=== PATIENT | male | born 1970 | race Caucasian/White ===

== ENCOUNTER 2017-02-01 23:33 | Emergency (ER) | payer SELFPAY ==
[2017-02-02] MEDS ORDERED: ZOFRAN IV ONE (00:11)
[2017-02-02] MEDS ORDERED: DILAUDID IV ONE (00:11)
[2017-02-02] MEDS ORDERED: NACL 0.9% 1000 ML 1,000 ML IV ONE (00:11)
[2017-02-02 00:17] LABS: Hematocrit 43.7 % (35.5-45.6); Hemoglobin 15.2 gm/dl (11.8-15.2); Mean Corpuscular HGB Conc 35 % (32-34); Mean Corpuscular Hemoglobin 32 pg (28-32); Mean Corpuscular Volume 92 fl (84-94); Platelet Count 268 K/mm3 (140-440); Red Blood Count 4.76 M/mm3 (3.65-5.03); Red Cell Distribution Width 14.6 % (13.2-15.2); White Blood Count 9.1 K/mm3 (4.5-11.0)
[2017-02-02 00:36] LABS: Alanine Aminotransferase 30 units/L (7-56); Albumin 4.2 g/dL (3.9-5); Albumin/Globulin Ratio 1.1 %; Alkaline Phosphatase 97 units/L (35-129); Anion Gap 26 mmol/L; BUN/Creatinine Ratio 16.25; Blood Urea Nitrogen 13 mg/dL (9-20); Calcium 8.9 mg/dL (8.4-10.2); Carbon Dioxide 16 mmol/L (22-30); Chloride 97.6 mmol/L (98-107); Glucose 94 mg/dL (75-100); Lipase 40 units/L (13-60); Potassium 3.8 mmol/L (3.6-5.0); Sodium 136 mmol/L (137-145); Total Protein 7.9 g/dL (6.3-8.2)
--- NOTE | 2017-02-02 01:07 | Emergency Department Report ---
ED General Adult HPI - General Chief complaint: Abdominal Pain Stated complaint: ABD PAIN Time Seen by Provider: 02/02/17 00:05 Source: patient Mode of arrival: Wheelchair Limitations: No Limitations - History of Present Illness Initial comments: This is a 46-year-old male. He is previously unknown to me. The patient has a past medical history of alcohol abuse, pancreatitis. The patient presents to the ER with diffuse upper abdominal pain. It is sharp. It increases with palpation. It decreases with rest. It also decreases with hydromorphone. No irritative or obstructive urinary symptoms. No testicular pain. Patient is in a moderate amount of distress. -: Gradual Location: abdomen Severity scale (0 -10): 10 Consistency: constant Improves with: medication, rest Worsens with: movement Associated Symptoms: nausea/vomiting, weakness. denies: chest pain - Related Data Previous Rx's Medication Instructions Recorded Last Taken Type Pantoprazole [Protonix TAB] 40 mg PO QDAY #14 tablet 05/25/16 Unknown Rx Dicyclomine [Bentyl] 10 mg PO QID PRN #20 capsule 02/02/17 Unknown Rx Ondansetron [Zofran Odt] 4 mg PO QID PRN #20 tab.rapdis 02/02/17 Unknown Rx Promethazine [Phenergan SUPPOS] 50 mg [place] Q6H PRN #20 supp.rect 02/02/17 Unknown Rx Sucralfate [Carafate] 1 gm PO Q6HR #120 tablet 02/02/17 Unknown Rx Allergies Allergy/AdvReac Type Severity Reaction Status Date / Time No Known Allergies Allergy Verified 07/18/15 12:53 ED Review of Systems ROS: Stated complaint: ABD PAIN Other details as noted in HPI Constitutional: malaise. denies: fever Eyes: denies: eye discharge Respiratory: denies: cough Gastrointestinal: abdominal pain, nausea Genitourinary: as per HPI Musculoskeletal: as per HPI Skin: as per HPI Neurological: weakness Psychiatric: anxiety. denies: suicidal thoughts ED Past Medical Hx - Past Medical History Hx Hypertension: Yes Hx Heart Attack/AMI: No Hx Congestive Heart Failure: No Hx Diabetes: No Hx Deep Vein Thrombosis: No Hx Pulmonary Embolism: No Hx GERD: Yes Hx Liver Disease: No Hx Renal Disease: No Hx Sickle Cell Disease: No Hx Arthritis: No Hx Headaches / Migraines: Yes Hx Seizures: No Hx Kidney Stones: No Hx Asthma: No Hx COPD: No Hx Tuberculosis: No Hx Dementia: No Hx HIV: No Additional medical history: Pancreatitis. ALCOHOL ABUSE. STOMACH ULCER - Surgical History Hx Coronary Stent: No Hx Pacemaker: No Hx Internal Defibrillator: No Additional Surgical History: colon surgery - Social History Smoking Status: Never Smoker Substance Use Type: None - Medications Home Medications: Home Medications Medication Instructions Recorded Confirmed Last Taken Type Pantoprazole [Protonix TAB] 40 mg PO QDAY #14 tablet 05/25/16 02/01/17 Unknown Rx Dicyclomine [Bentyl] 10 mg PO QID PRN #20 capsule 02/02/17 Unknown Rx Ondansetron [Zofran Odt] 4 mg PO QID PRN #20 tab.rapdis 02/02/17 Unknown Rx Promethazine [Phenergan SUPPOS] 50 mg [place] Q6H PRN #20 supp.rect 02/02/17 Unknown Rx Sucralfate [Carafate] 1 gm PO Q6HR #120 tablet 02/02/17 Unknown Rx ED Physical Exam - General Limitations: No Limitations General appearance: alert, in distress - Head Head exam: Present: atraumatic, normocephalic - Eye Eye exam: Present: normal appearance - ENT ENT exam: Present: normal exam, normal orophraynx, mucous membranes moist, normal external ear exam - Neck Neck exam: Present: normal inspection, full ROM. Absent: tenderness, meningismus - Respiratory Respiratory exam: Present: normal lung sounds bilaterally. Absent: respiratory distress, wheezes, rales, rhonchi, stridor, chest wall tenderness, accessory muscle use, decreased breath sounds, prolonged expiratory - Cardiovascular Cardiovascular Exam: Present: normal rhythm, tachycardia, normal heart sounds. Absent: systolic murmur, diastolic murmur, rubs, gallop - GI/Abdominal GI/Abdominal exam: Present: soft, tenderness, normal bowel sounds. Absent: distended, guarding, rebound, rigid, pulsatile mass - Rectal Rectal exam: Present: deferred - Extremities Exam Extremities exam: Present: normal inspection, full ROM, normal capillary refill. Absent: tenderness, pedal edema, joint swelling, calf tenderness - Back Exam Back exam: Present: normal inspection, full ROM. Absent: tenderness, CVA tenderness (R), CVA tenderness (L), muscle spasm, paraspinal tenderness, vertebral tenderness - Neurological Exam Neurological exam: Present: alert, other (Extraocular movements intact. Tongue midline. No facial droop. Facial sensation intact to light touch in the V1, V2 , V3 distribution bilaterally. 5 and 5 strength in 4 extremities.. Sensation is intact to light touch in 4 extremities.). Absent: motor sensory deficit - Psychiatric Psychiatric exam: Present: normal affect, normal mood, anxious - Skin Skin exam: Present: warm, dry, intact, normal color. Absent: rash ED Course Vital Signs 02/01/17 02/01/17 02/02/17 23:38 23:56 00:00 Temperature 98 F Pulse Rate 110 H 93 H 92 H Respiratory 16 22 23 Rate Blood Pressure 135/99 134/101 O2 Sat by Pulse 97 96 Oximetry 02/02/17 02/02/17 02/02/17 00:30 01:00 02:02 Temperature Pulse Rate 86 77 92 H Respiratory 16 13 18 Rate Blood Pressure 135/83 125/87 125/87 O2 Sat by Pulse 92 98 97 Oximetry 02/02/17 02/02/17 02/02/17 02:30 03:00 03:30 Temperature Pulse Rate 83 78 Respiratory 13 12 14 Rate Blood Pressure 125/87 125/87 126/90 O2 Sat by Pulse 95 96 Oximetry 02/02/17 02/02/17 02/02/17 04:00 04:30 05:00 Temperature Pulse Rate Respiratory 12 9 L 12 Rate Blood Pressure 120/80 126/90 122/82 O2 Sat by Pulse 95 99 97 Oximetry - Reevaluation(s) Reevaluation #1: 02/02/17 01:27 Differential diagnosis: GERD, gastritis, pancreatitis, biliary colic Assessment and plan: 46-year-old male with diffuse abdominal tenderness, most likely recurrent pancreatitis. He is afebrile with slight tachycardia. He will be treated with fluids, pain medication, nausea medication, CT scan is pending. Reevaluation #2: 02/02/17 05:44 CT scan of the abdomen and pelvis negative for acute surgical disease. There is a suggestion of urinary obstruction. The patient refused a Hayes catheter, and then was promptly able to urinate 2 L without difficulty. Right upper quadrant ultrasound did not demonstrate any evidence of cholecystitis. In fact, no cholelithiasis is noted. Lactic acid most likely secondary to underlying alcohol consumption, poor hepatic clearance, and dehydration. A repeat laboratory studies demonstrated slightly decreased lactic acid, and improvement in anion gap. The patient's abdomen is improved on repeat examination. He is able to tolerate liquid feeds. He is still clinically intoxicated, but he is accompanied by a girlfriend who feels comfortable to take him home. The patient and accompanying [employer] are encouraged to discontinue alcohol consumption. The patient will be discharged with pain medication, nausea medication, instructions to follow up with outpatient gastroenterology. ED Medical Decision Making - Lab Data Result diagrams: 02/02/17 00:00 02/02/17 02:40 Vital Signs 02/01/17 23:38 Temperature 98 F Pulse Rate 110 H Respiratory 16 Rate Blood Pressure 135/99 O2 Sat by Pulse 97 Oximetry Lab Results 02/02/17 02/02/17 Range/Units 00:00 00:00 WBC 9.1 (4.5-11.0) K/mm3 RBC 4.76 (3.65-5.03) M/mm3 Hgb 15.2 (11.8-15.2) gm/dl Hct 43.7 (35.5-45.6) % MCV 92 (84-94) fl MCH 32 (28-32) pg MCHC 35 H (32-34) % RDW 14.6 (13.2-15.2) % Plt Count 268 (140-440) K/mm3 Lymph % (Auto) 38.1 H (13.4-35.0) % Ramsey % (Auto) 9.9 H (0.0-7.3) % Eos % (Auto) 2.0 (0.0-4.3) % Baso % (Auto) 1.0 (0.0-1.8) % Lymph # 3.5 (1.2-5.4) K/mm3 Ramsey # 0.9 H (0.0-0.8) K/mm3 Eos # 0.2 (0.0-0.4) K/mm3 Baso # 0.1 (0.0-0.1) K/mm3 Seg Neutrophils % 49.0 (40.0-70.0) % Seg Neutrophils # 4.5 (1.8-7.7) K/mm3 Sodium 136 L (137-145) mmol/L Potassium 3.8 (3.6-5.0) mmol/L Chloride 97.6 L (98-107) mmol/L Carbon Dioxide 16 L (22-30) mmol/L Anion Gap 26 mmol/L BUN 13 (9-20) mg/dL Creatinine 0.8 (0.8-1.5) mg/dL Estimated GFR > 60 ml/min BUN/Creatinine Ratio 16.25 % Glucose 94 (75-100) mg/dL Calcium 8.9 (8.4-10.2) mg/dL Total Bilirubin 0.80 (0.1-1.2) mg/dL AST 47 H (5-40) units/L ALT 30 (7-56) units/L Alkaline Phosphatase 97 (35-129) units/L Total Protein 7.9 (6.3-8.2) g/dL Albumin 4.2 (3.9-5) g/dL Albumin/Globulin Ratio 1.1 % Lipase 40 (13-60) units/L - EKG Data -: EKG Interpreted by Ma EKG shows normal: sinus rhythm Rate: tachycardia - EKG Data 02/02/17 01:28 Normal sinus, 89 bpm, normal axis, normal intervals, not morphologically consistent with STEMI, when compared to old EKG, septal infarct appears to be here. - Radiology Data Radiology results: pending, report reviewed, image reviewed Right upper quadrant ultrasound is negative for cholecystitis. CT scan of the abdomen and pelvis suggests a gallstone in the neck of the gallbladder. There is distention of the urinary bladder. No pericholecystic inflammatory changes were noted. Critical care attestation.: If time is entered above; I have spent that time in minutes in the direct care of this critically ill patient, excluding procedure time. ED Disposition Clinical Impression: Abdominal pain, Alcohol intoxication Disposition: DISCHARGED TO HOME OR SELFCARE Is pt being admited?: No Does the pt Need Aspirin: No Condition: Stable Instructions: Pancreatitis (ED) Additional Instructions: Moderate or discontinue consumption of alcohol. This is the most likely cause of your pain. Take the medications as directed and needed. Follow up with a primary care doctor or bar manager within the next 7-10 days. Avoid consumption of NSAIDs, including Aleve, ibuprofen, Motrin, aspirin. Dr. Gutiérrez is a local bar manager. Return to the ER right away with you pain, worsened pain, migration of pain, fevers, chills, confusion, intractable nausea or vomiting, inability to tolerate liquid feeds. Referrals: PRIMARY CARE, [Primary Care Provider] - 3-5 Days URI GUTIÉRREZ MD [Staff Physician] - 3-5 Days
[2017-02-02] MEDS ORDERED: PEPCID IV ONE (01:26)
[2017-02-02] MEDS ORDERED: CARAFATE PO ONE (01:26)
--- NOTE | 2017-02-02 01:55 | Admit Criteria Form ---
Admission Criteria Documentation: ABDOMINAL PAIN Clinical Indications for Admission to Inpatient Care (Place 'X' for any and all applicable criteria): Admission is indicated for ANY ONE of the following(1)(2)(3)(4)(5): [X ]I. Inpatient admission required rather than observation care (Also use Abdominal Pain: Observation Care, as appropriate) because of ANY ONE of the following: [ ]a) Severe pain requiring acute inpatient management [X ]b) Identification of etiology/finding that requires inpatient care (eg, aortic dissection, free air) [ ]c) Absent bowel sounds with complete ileus(6) [ ]d) Suspected toxic megacolon [ ]e) Severe electrolyte abnormalities requiring inpatient care [ ]f) High fever or infection requiring inpatient admission as indicated by ANY ONE of following(7)(8): [ ] i) Appropriate outpatient or observational care antimicrobial treatment unavailable, not effective, or not feasible [ ] ii) Documented bacteremia [ ] iii) Temperature > 104.9 degrees F (oral) [ ] iv) T >103.1 F (oral) or < 96.8 F(rectal) that does not respond to all emergency treatment measures [ ]g) Signs of intestinal obstruction [B] [ ]h) Hemodynamic instability [ ]i) IV fluid to replace significant ongoing losses (greater than 3 L/m2 per day) (12)(13) [ ]j) Percutaneous or open drainage (eg, abscess, biliary tract ) procedures [ ]k) Parenteral nutrition regimen that must be implemented on inpatient basis [ ]l) Other condition,treatment or monitoring requiring inpatient admission. [ ]II. Peritoneal signs present [ ]III. Surgery needed that cannot be performed on an ambulatory basis. [ ]IV. Evaluation requires patient to not eat or drink for extended period ( eg, more than 24 hours). [ ]V. Contraindications and/or Inappropriate clinical situations for Observational Care in patients with abdominal pain, when ANY ONE of the following is required: [ ]a) Thorough evaluation is required to prevent catastrophic events due to delays in diagnosing (e.g.Mesenteric ischemia) 1,3 [ ]b) Patient with severe pathology or with chronic symptoms unlikely to improve in the ED stay (3) [ ]. General contraindications and/or Inappropriate clinical situations for Observational Care in patients with abdominal pain, when ANY ONE of the following is required: [ ]a) Prediction of prolongation of LOS based on ANY ONE of the following may be considered as a contraindication for observational care 2, 3, 4, 5, 6, 7, 8, 9, 10, 11 [ ]i) Age > 65 yrs. [ ]ii) Patient arriving by ambulance [ ]iii) Patient with high acuity [ ]iv) Patient requiring vital sign monitoring [ ]v) Patient on IV medication [ ]b) Systolic blood pressures 180mmHg 3,12 [ ]c) Patient with altered mental status including delirium and other alteration of consciousness, (3) [ ]d) Patient whose discharge disposition will be to a assisted home or rehabilitation home should not be managed in Emergency Department Observation Unit. CMS rule requires 3 days hospital stay before such placement.3,13 [ ]e) Patient with failure to thrive due to broad array of etiologies 3,16,17 [ ]f) Inability to ambulate 3,14 Extended stay beyond goal length of stay may be needed for(2)(3): [ ]a) Persistent abdominal pain with suspected intra-abdominal process [ ]b) Diagnosed condition requiring continued stay (e.g., pancreatitis, complicated diverticulitis) [ ]c) Surgery (e.g., colectomy) The original [facility] content created by [employer] has been revised. The portions of the content which have been revised are identified through the use of italic text or in bold, and [facility] has neither reviewed nor approved the modified material.All other unmodified content is copyright [facility] [employer]. Please see references footnoted in the original [facility] edition 2016 Admission Criteria Met: Yes
[2017-02-02] MEDS ORDERED: NACL 0.9% 1000 ML 2,000 ML IV ONE (02:11)
--- NOTE | 2017-02-02 02:25 | Cat Scan Report ---
FINAL REPORT EXAM: CT ABDOMEN PELVIS W CON HISTORY: abd pain pancreatitis TECHNIQUE: CT images are acquired through the Abdomen and Pelvis following intravenous administration contrast. Transaxial, coronal and sagittal reformations are provided. PRIORS: None FINDINGS: Partially visualized intrathoracic contents are unremarkable. There is a 3 millimeter gallstone near the neck of the gallbladder without pericholecystic inflammatory findings. The liver, pancreas, spleen, and adrenal glands are normal. Kidneys show no worrisome lesions, hydronephrosis, or calculi. Marked distention of the urinary bladder. Mild ureteral ectasia without hydroureteronephrosis. Small and large bowel are normal in caliber. Appendix is normal. No free air, free fluid, or lymphadenopathy identified. Aorta is normal in course and caliber. Superficial soft tissues are unremarkable. No acute or aggressive appearing skeletal findings. IMPRESSION: No sequela/complications of acute pancreatitis identified. Marked distention of the urinary bladder with ureteral ectasia. Correlation with symptoms of urinary retention is requested. A 3 millimeter gallstone is present near the neck of the gallbladder. No pericholecystic inflammatory findings.
[2017-02-02 03:13] LABS: Anion Gap 22 mmol/L; BUN/Creatinine Ratio 15.71; Blood Urea Nitrogen 11 mg/dL (9-20); Calcium 7.9 mg/dL (8.4-10.2); Carbon Dioxide 19 mmol/L (22-30); Chloride 99.2 mmol/L (98-107); Glucose 100 mg/dL (75-100); Potassium 3.7 mmol/L (3.6-5.0); Sodium 136 mmol/L (137-145)
--- NOTE | 2017-02-02 03:46 | Ultrasound Report ---
FINAL REPORT EXAM: US ABDOMEN LIMITED HISTORY: abd pain COMPARISONS: CT abdomen pelvis of the same date FINDINGS: Grayscale ultrasound evaluation of the right upper abdomen The imaged portion of the liver is diffusely increased in parenchymal echogenicity. No parenchymal lesion identified. No intra or extrahepatic biliary ductal dilatation. The common duct measures approximately 4 millimeters in caliber. The imaged portion of the aorta is sonographically unremarkable. Unremarkable sonographic appearance of the gallbladder. No cholelithiasis. Gallbladder wall measures approximately 2-3 millimeters. Imaged portion of the pancreatic head is sonographically unremarkable. The remainder of the pancreas is not well seen secondary to overlying bowel gas. No abdominal ascites or free fluid in Morison's pouch. The right kidney measures up to 10.3 cm in length and is without hydronephrosis or echogenic shadowing foci to suggest nephrolithiasis. IMPRESSION: No gallstone identified. No findings of cholecystitis. Hepatic steatosis.
[2017-02-02] MEDS ORDERED: NACL 0.9% 1000 ML 1,000 ML ONE (04:20)
[2017-02-02 05:35] LABS: Bilirubin,Urine NEG (Negative); Blood,Urine NEG (Negative); Ketones,Urine NEG (Negative); Leukocyte Esterase,Urine NEG (Negative); Nitrite,Urine NEG (Negative); Protein,Urine <15 mg/dL mg/dL (Negative); RBC,Urine < 1.0 /HPF (0.0-6.0); Urobilinogen,Urine < 2.0 mg/dL (<2.0)
[2017-02-02 06:27] VITALS: BP 120/80
== END 2017-02-02 06:15 | disposition home or self-care (01) ==
LOC: ED 23:33
DX: R10.10 Upper abdominal pain, unspecified (principal); F10.129 Alcohol abuse with intoxication, unspecified; I10 Essential (primary) hypertension; K21.9 Gastro-esophageal reflux disease without esophagitis
CPT/HCPCS: 36415; 51702; 74177; 76705; 80048; 80053; 81001; 82140; 83690; 85025; 93005; 93010; 96361; 96374; 96375; 99284; G0480; J1170; J2405; J7030; Q9967; 80320

== ENCOUNTER 2017-02-14 08:57 | Emergency (ER) | payer SELFPAY ==
[2017-02-14 09:07] VITALS: BP 134/100
[2017-02-14 09:34] LABS: Basophils % (Auto) 0.2 % (0.0-1.8); Eosinophils % (Auto) 0.6 % (0.0-4.3); Hematocrit 46.7 % (35.5-45.6); Hemoglobin 15.8 gm/dl (11.8-15.2); Mean Corpuscular HGB Conc 34 % (32-34); Mean Corpuscular Hemoglobin 31 pg (28-32); Mean Corpuscular Volume 93 fl (84-94); Platelet Count 333 K/mm3 (140-440); Red Blood Count 5.05 M/mm3 (3.65-5.03); Red Cell Distribution Width 14.8 % (13.2-15.2); White Blood Count 6.2 K/mm3 (4.5-11.0)
[2017-02-14 09:43] LABS: Alanine Aminotransferase 42 units/L (7-56); Albumin/Globulin Ratio 1.1 %; Alkaline Phosphatase 104 units/L (35-129); Anion Gap 20 mmol/L; BUN/Creatinine Ratio 18.57; Blood Urea Nitrogen 13 mg/dL (9-20); Calcium 8.9 mg/dL (8.4-10.2); Carbon Dioxide 19 mmol/L (22-30); Chloride 101.7 mmol/L (98-107); Glucose 110 mg/dL (75-100); Lipase 21 units/L (13-60); Sodium 137 mmol/L (137-145); Total Protein 7.7 g/dL (6.3-8.2)
== END 2017-02-14 09:11 | disposition left against medical advice (07) ==
LOC: ED 08:57
DX: R10.9 Unspecified abdominal pain (principal); Z53.21 Procedure and treatment not carried out due to patient leaving prior to being seen by health care provider
CPT/HCPCS: 36415; 80053; 83690; 85025

== ENCOUNTER 2017-12-20 09:23 | Emergency (ER) | payer SELFPAY | END 2017-12-20 09:24 | disposition left against medical advice (07) | LOC: ED 09:23 | DX: R51 Headache (principal); R10.9 Unspecified abdominal pain; Z53.21 Procedure and treatment not carried out due to patient leaving prior to being seen by health care provider ==

== ENCOUNTER 2019-07-05 16:03 | Emergency (ER) | payer SELFPAY ==
[2019-07-05 18:18] VITALS: BP 107/76
== END 2019-07-05 18:20 | disposition left against medical advice (07) ==
LOC: ED 16:03
DX: R04.0 Epistaxis (principal); Z53.21 Procedure and treatment not carried out due to patient leaving prior to being seen by health care provider

== ENCOUNTER 2019-09-06 14:17 | Emergency (ER) | payer SELFPAY ==
[2019-09-06] MEDS ORDERED: SODIUM CHLORIDE 0.9% 1000 ML 1,000 ML ONE (15:15)
[2019-09-06] MEDS ORDERED: LORazepam 2 MG/ML VIAL IV ONE ×2 (15:15→15:25)
[2019-09-06] MEDS ORDERED: LORazepam 2 MG/ML VIAL ONE (15:15)
[2019-09-06] MEDS ORDERED: SODIUM CHLORIDE 0.9% 1000 ML 1,000 ML IV ONE (15:15)
--- NOTE | 2019-09-06 15:15 | Emergency Department Report ---
<HORTENSIA YA - Last Filed: 09/06/19 15:13> ED Alcohol HPI - General Stated Complaint: ASSUALTED Time Seen by Provider: 09/06/19 15:11 Source: patient, EMS - History of Present Illness Initial Comments: Patient is 49 years old male with history of chronic alcoholism. Patient brought to the emergency room for evaluation of her mental status most likely secondary to alcohol intoxication. Patient is agitated and with a strong smell of alcohol. Patient is unable to provide more information this time. MD Complaint: alcohol intoxication Chronic Alcohol Use: Yes Previous Visits for Alcohol Intoxication?: Yes Recent Trauma: No Associated Symptoms: denies other symptoms Treatments Prior to Arrival: none - Related Data Previous Rx's Medication Instructions Recorded Last Taken Type Pantoprazole [Protonix TAB] 40 mg PO QDAY #14 tablet 05/25/16 Unknown Rx Dicyclomine [Bentyl] 10 mg PO QID PRN #20 capsule 02/02/17 Unknown Rx Ondansetron [Zofran Odt] 4 mg PO QID PRN #20 tab.rapdis 02/02/17 Unknown Rx Promethazine [Phenergan SUPPOS] 50 mg OK Q6H PRN #20 supp.rect 02/02/17 Unknown Rx Sucralfate [Carafate] 1 gm PO Q6HR #120 tablet 02/02/17 Unknown Rx Famotidine [Pepcid] 20 mg PO BID #60 tablet 09/07/19 Unknown Rx Magnesium Oxide [Magnesium] 400 mg PO QDAY #30 capsule 09/07/19 Unknown Rx Metoclopramide [Reglan] 10 mg PO QID PRN #30 tablet 09/07/19 Unknown Rx Multivitamin with Folic Acid [[facility]vs 400 mcg PO QDAY #30 tablet 09/07/19 Unknown Rx One Daily Essential Tablet] chlordiazePOXIDE [Librium] 25 mg PO Q6H PRN #25 capsule 09/07/19 Unknown Rx Allergies Allergy/AdvReac Type Severity Reaction Status Date / Time No Known Allergies Allergy Verified 07/18/15 12:53 ED Review of Systems Comment: All other systems reviewed and negative Constitutional: denies: chills, fever Respiratory: denies: cough, shortness of breath Cardiovascular: denies: chest pain, palpitations Gastrointestinal: denies: abdominal pain, nausea Neurological: denies: headache, weakness ED Past Medical Hx - Past Medical History Hx Hypertension: Yes Hx Heart Attack/AMI: No Hx Congestive Heart Failure: No Hx Diabetes: No Hx Deep Vein Thrombosis: No Hx Pulmonary Embolism: No Hx GERD: Yes Hx Liver Disease: No Hx Renal Disease: No Hx Sickle Cell Disease: No Hx Arthritis: No Hx Headaches / Migraines: Yes Hx Seizures: No Hx Kidney Stones: No Hx Asthma: No Hx COPD: No Hx Tuberculosis: No Hx Dementia: No Hx HIV: No Additional medical history: Pancreatitis. ALCOHOL ABUSE. STOMACH ULCER - Surgical History Hx Coronary Stent: No Hx Pacemaker: No Hx Internal Defibrillator: No Additional Surgical History: colon surgery - Social History Smoking Status: Current Every Day Smoker Substance Use Type: Alcohol - Medications Home Medications: Home Medications Medication Instructions Recorded Confirmed Last Taken Type Pantoprazole [Protonix TAB] 40 mg PO QDAY #14 tablet 05/25/16 02/01/17 Unknown Rx Dicyclomine [Bentyl] 10 mg PO QID PRN #20 capsule 02/02/17 Unknown Rx Ondansetron [Zofran Odt] 4 mg PO QID PRN #20 tab.rapdis 02/02/17 Unknown Rx Promethazine [Phenergan SUPPOS] 50 mg OK Q6H PRN #20 supp.rect 02/02/17 Unknown Rx Sucralfate [Carafate] 1 gm PO Q6HR #120 tablet 02/02/17 Unknown Rx Famotidine [Pepcid] 20 mg PO BID #60 tablet 09/07/19 Unknown Rx Magnesium Oxide [Magnesium] 400 mg PO QDAY #30 capsule 09/07/19 Unknown Rx Metoclopramide [Reglan] 10 mg PO QID PRN #30 tablet 09/07/19 Unknown Rx Multivitamin with Folic Acid [[facility] 400 mcg PO QDAY #30 tablet 09/07/19 Unknown Rx One Daily Essential Tablet] chlordiazePOXIDE [Librium] 25 mg PO Q6H PRN #25 capsule 09/07/19 Unknown Rx ED Physical Exam - General General appearance: alert, appears intoxicated - Head Head exam: Present: atraumatic, normocephalic, normal inspection - Eye Eye exam: Present: normal appearance - ENT ENT exam: Present: normal exam, normal orophraynx, mucous membranes moist - Neck Neck exam: Present: normal inspection, full ROM. Absent: tenderness, meningismus, lymphadenopathy, thyromegaly - Respiratory Respiratory exam: Present: normal lung sounds bilaterally - Cardiovascular Cardiovascular Exam: Present: regular rate, normal rhythm, normal heart sounds - GI/Abdominal GI/Abdominal exam: Present: soft, normal bowel sounds. Absent: distended, tenderness, guarding, rebound, rigid, mass, bruit, pulsatile mass, hernia - Extremities Exam Extremities exam: Present: normal inspection, full ROM, normal capillary refill - Back Exam Back exam: Present: normal inspection, full ROM. Absent: CVA tenderness (R), CVA tenderness (L) - Neurological Exam Neurological exam: Present: alert, altered, normal gait, reflexes normal. Absent: motor sensory deficit - Psychiatric Psychiatric exam: Present: agitated, anxious - Skin Skin exam: Present: warm, intact, normal color ED Disposition Clinical Impression: Hypomagnesemia Alcohol dependency Qualifiers: Substance use status: other alcohol-induced disorder Qualified Code(s): F10.288 - Alcohol dependence with other alcohol-induced disorder Disposition: DC-01 TO HOME OR SELFCARE Condition: Stable Additional Instructions: Recommend the patient minimize, discontinue consumption of alcohol. Long-term consumption of alcohol may cause , disability, addiction, loss of quality of life. Take the Pepcid medication as needed for heartburn, Reglan medication as needed for nausea, vomiting, Librium medication as needed for sensation of alcohol withdrawal, jittering, shakes, and multivitamin and magnesium supplementation as directed. Recommend patient follow up with the primary medical doctor within 3-[address] and consume alcohol simultaneously. Return to emergency room right away with new, worsened or different symptoms, projectile vomiting, change in mental status, confusion, inability to tolerate liquid feeds, new, worsening or different symptoms not present on the initial emergency room evaluation. Referrals: [facility]IMARY [facility] [Primary Care Provider] - 3-5 Days [facility] [Provider Group] - 3-[address] [facility] [Provider Group] - 3-5 Days <ROXI DURANT - Last Filed: 09/07/19 07:54> ED Review of Systems ROS: Stated complaint: ASSUALTED Other details as noted in HPI ED Course Vital Signs 09/06/19 09/06/19 09/06/19 15:11 15:15 15:18 Temperature 98.2 F Pulse Rate 111 H 99 H 108 H Respiratory 26 H 19 23 Rate Blood Pressure 135/92 Blood Pressure 135/92 [Right] O2 Sat by Pulse 99 Oximetry 09/06/19 09/06/19 09/06/19 15:30 15:45 16:00 Temperature Pulse Rate 95 H 98 H 100 H Respiratory 16 18 24 Rate Blood Pressure 144/88 144/88 149/87 Blood Pressure [Right] O2 Sat by Pulse Oximetry 09/06/19 09/06/19 09/06/19 16:15 16:31 16:51 Temperature Pulse Rate 95 H 97 H 112 H Respiratory 12 22 22 Rate Blood Pressure 149/87 149/87 149/87 Blood Pressure [Right] O2 Sat by Pulse 95 94 96 Oximetry 09/06/19 09/06/19 09/06/19 17:01 17:15 17:31 Temperature Pulse Rate 112 H 103 H Respiratory 16 20 19 Rate Blood Pressure 149/87 Blood Pressure [Right] O2 Sat by Pulse 95 95 96 Oximetry 09/06/19 09/06/19 09/06/19 18:01 18:32 19:01 Temperature Pulse Rate 99 H 92 H 167 H Respiratory 24 21 Rate Blood Pressure 144/95 144/95 144/95 Blood Pressure [Right] O2 Sat by Pulse 94 84 Oximetry 09/06/19 09/06/19 09/06/19 19:40 20:01 20:13 Temperature 98.8 F Pulse Rate 101 H 104 H 127 H Respiratory 14 16 18 Rate Blood Pressure 144/95 90/51 Blood Pressure 155/82 [Right] O2 Sat by Pulse 100 Oximetry 09/06/19 09/06/19 09/06/19 20:31 21:01 21:31 Temperature Pulse Rate 95 H 84 79 Respiratory 16 16 16 Rate Blood Pressure 90/60 107/65 130/68 Blood Pressure [Right] O2 Sat by Pulse 100 100 100 Oximetry 09/06/19 09/06/19 09/06/19 21:35 22:00 22:30 Temperature Pulse Rate 81 78 84 Respiratory 16 16 16 Rate Blood Pressure 138/74 138/71 151/82 Blood Pressure [Right] O2 Sat by Pulse 100 100 100 Oximetry 09/06/19 09/06/19 09/07/19 23:00 23:30 00:00 Temperature Pulse Rate 77 79 77 Respiratory 16 16 16 Rate Blood Pressure 140/74 133/71 137/70 Blood Pressure [Right] O2 Sat by Pulse 100 100 100 Oximetry 09/07/19 09/07/19 09/07/19 00:31 01:00 01:30 Temperature Pulse Rate 88 79 78 Respiratory 16 16 16 Rate Blood Pressure 162/82 150/77 130/68 Blood Pressure [Right] O2 Sat by Pulse 100 100 100 Oximetry 09/07/19 09/07/19 09/07/19 02:00 02:30 03:00 Temperature Pulse Rate 77 76 81 Respiratory 16 16 16 Rate Blood Pressure 132/70 154/79 161/90 Blood Pressure [Right] O2 Sat by Pulse 100 100 100 Oximetry 09/07/19 09/07/19 03:30 04:00 Temperature Pulse Rate 76 77 Respiratory 16 16 Rate Blood Pressure 142/72 152/79 Blood Pressure [Right] O2 Sat by Pulse 100 100 Oximetry - Reevaluation(s) Reevaluation #1: 09/07/19 07:50 The patient is reassessed by myself. The patient is alert, oriented, sober, and in no acute distress. He denies physical pain at this time, and is not homicidal or suicidal. He has been observed by myself for hours without clinical decompensation or active vomiting. A noncontrast CT scan of the brain is negative for acute disease. He is not tachycardic at the moment. He has minimal tongue fasciculations. He indicates his girlfriend can pick him up. The patient is advised to abstain from alcohol consumption. He will be discharged with supportive medications. 1013 is canceled by myself, as the patient is sober, not homicidal, not suicidal, and at this point in time, should be able to care for himself. ED Medical Decision Making - Lab Data Result diagrams: 09/06/19 16:22 09/06/19 16:22 Vital Signs 09/06/19 09/06/19 09/06/19 15:11 15:15 15:18 Temperature 98.2 F Pulse Rate 111 H 99 H 108 H Respiratory 26 H 19 23 Rate Blood Pressure 135/92 Blood Pressure 135/92 [Right] O2 Sat by Pulse 99 Oximetry 09/06/19 09/06/19 09/06/19 15:30 15:45 16:00 Temperature Pulse Rate 95 H 98 H 100 H Respiratory 16 18 24 Rate Blood Pressure 144/88 144/88 149/87 Blood Pressure [Right] O2 Sat by Pulse Oximetry 09/06/19 09/06/19 09/06/19 16:15 16:31 16:51 Temperature Pulse Rate 95 H 97 H 112 H Respiratory 12 22 22 Rate Blood Pressure 149/87 149/87 149/87 Blood Pressure [Right] O2 Sat by Pulse 95 94 96 Oximetry 09/06/19 09/06/19 09/06/19 17:01 17:15 17:31 Temperature Pulse Rate 112 H 103 H Respiratory 16 20 19 Rate Blood Pressure 149/87 Blood Pressure [Right] O2 Sat by Pulse 95 95 96 Oximetry 09/06/19 09/06/19 09/06/19 18:01 18:32 19:01 Temperature Pulse Rate 99 H 92 H 167 H Respiratory 24 21 Rate Blood Pressure 144/95 144/95 144/95 Blood Pressure [Right] O2 Sat by Pulse 94 84 Oximetry 09/06/19 09/06/19 09/06/19 19:40 20:01 20:13 Temperature 98.8 F Pulse Rate 101 H 104 H 127 H Respiratory 14 16 18 Rate Blood Pressure 144/95 90/51 Blood Pressure 155/82 [Right] O2 Sat by Pulse 100 Oximetry 09/06/19 09/06/19 09/06/19 20:31 21:01 21:31 Temperature Pulse Rate 95 H 84 79 Respiratory 16 16 16 Rate Blood Pressure 90/60 107/65 130/68 Blood Pressure [Right] O2 Sat by Pulse 100 100 100 Oximetry 09/06/19 09/06/19 09/06/19 21:35 22:00 22:30 Temperature Pulse Rate 81 78 84 Respiratory 16 16 16 Rate Blood Pressure 138/74 138/71 151/82 Blood Pressure [Right] O2 Sat by Pulse 100 100 100 Oximetry 09/06/19 09/06/19 09/07/19 23:00 23:30 00:00 Temperature Pulse Rate 77 79 77 Respiratory 16 16 16 Rate Blood Pressure 140/74 133/71 137/70 Blood Pressure [Right] O2 Sat by Pulse 100 100 100 Oximetry 09/07/19 09/07/19 09/07/19 00:31 01:00 01:30 Temperature Pulse Rate 88 79 78 Respiratory 16 16 16 Rate Blood Pressure 162/82 150/77 130/68 Blood Pressure [Right] O2 Sat by Pulse 100 100 100 Oximetry 09/07/19 09/07/19 09/07/19 02:00 02:30 03:00 Temperature Pulse Rate 77 76 81 Respiratory 16 16 16 Rate Blood Pressure 132/70 154/79 161/90 Blood Pressure [Right] O2 Sat by Pulse 100 100 100 Oximetry 09/07/19 09/07/19 03:30 04:00 Temperature Pulse Rate 76 77 Respiratory 16 16 Rate Blood Pressure 142/72 152/79 Blood Pressure [Right] O2 Sat by Pulse 100 100 Oximetry Lab Results 09/06/19 09/06/19 09/06/19 Range/Units 16:22 16:22 16:22 WBC 4.8 (4.5-11.0) K/mm3 RBC 4.29 (3.65-5.03) M/mm3 Hgb 14.1 (11.8-15.2) gm/dl Hct 41.6 (35.5-45.6) % MCV 97 H (84-94) fl MCH 33 H (28-32) pg MCHC 34 (32-34) % RDW 13.6 (13.2-15.2) % Plt Count 164 (140-440) K/mm3 Lymph % (Auto) 33.2 (13.4-35.0) % [place] % (Auto) 6.9 (0.0-7.3) % Eos % (Auto) 0.4 (0.0-4.3) % Baso % (Auto) 1.4 (0.0-1.8) % Lymph # 1.6 (1.2-5.4) K/mm3 [place] # 0.3 (0.0-0.8) K/mm3 Eos # 0.0 (0.0-0.4) K/mm3 Baso # 0.1 (0.0-0.1) K/mm3 Seg Neutrophils % 58.1 (40.0-70.0) % Seg Neutrophils # 2.8 (1.8-7.7) K/mm3 Sodium 142 (137-145) mmol/L Potassium 3.7 (3.6-5.0) mmol/L Chloride 102.0 (98-107) mmol/L Carbon Dioxide 22 (22-30) mmol/L Anion Gap 22 mmol/L BUN 7 L (9-20) mg/dL Creatinine 0.5 L (0.8-1.5) mg/dL Estimated GFR > 60 ml/min BUN/Creatinine Ratio 14 % Glucose 105 H (75-100) mg/dL Calcium 8.5 (8.4-10.2) mg/dL Magnesium 1.60 L (1.7-2.3) mg/dL Total Bilirubin 0.20 (0.1-1.2) mg/dL AST 65 H (5-40) units/L ALT 34 (7-56) units/L Alkaline Phosphatase 90 (35-129) units/L Total Protein 7.9 (6.3-8.2) g/dL Albumin 4.2 (3.9-5) g/dL Albumin/Globulin Ratio 1.1 % Urine Color (Yellow) Urine Turbidity (Clear) Urine pH (5.0-7.0) Ur Specific [place] (1.003-1.030) Urine Protein (Negative) mg/dL Urine Glucose (UA) (Negative) mg/dL Urine Ketones (Negative) mg/dL Urine Blood (Negative) Urine Nitrite (Negative) Urine Bilirubin (Negative) Urine Urobilinogen (<2.0) mg/dL Ur Leukocyte Esterase (Negative) Urine WBC (Auto) (0.0-6.0) /HPF Urine RBC (Auto) (0.0-6.0) /HPF U Epithel Cells (Auto) (0-13.0) /HPF Urine Mucus /HPF Urine Opiates Screen Urine Methadone Screen Ur Barbiturates Screen Ur Phencyclidine Scrn Ur Amphetamines Screen U Benzodiazepines Scrn Urine Cocaine Screen U Marijuana (THC) Screen Drugs of Abuse Note Plasma/Serum Alcohol 0.32 H (0-0.07) % 09/06/19 09/06/19 Range/Units 18:39 18:39 WBC (4.5-11.0) K/mm3 RBC (3.65-5.03) M/mm3 Hgb (11.8-15.2) gm/dl Hct (35.5-45.6) % MCV (84-94) fl MCH (28-32) pg MCHC (32-34) % RDW (13.2-15.2) % Plt Count (140-440) K/mm3 Lymph % (Auto) (13.4-35.0) % [place] % (Auto) (0.0-7.3) % Eos % (Auto) (0.0-4.3) % Baso % (Auto) (0.0-1.8) % Lymph # (1.2-5.4) K/mm3 [place] # (0.0-0.8) K/mm3 Eos # (0.0-0.4) K/mm3 Baso # (0.0-0.1) K/mm3 Seg Neutrophils % (40.0-70.0) % Seg Neutrophils # (1.8-7.7) K/mm3 Sodium (137-145) mmol/L Potassium (3.6-5.0) mmol/L Chloride (98-107) mmol/L Carbon Dioxide (22-30) mmol/L Anion Gap mmol/L BUN (9-20) mg/dL Creatinine (0.8-1.5) mg/dL Estimated GFR ml/min BUN/Creatinine Ratio % Glucose (75-100) mg/dL Calcium (8.4-10.2) mg/dL Magnesium (1.7-2.3) mg/dL Total Bilirubin (0.1-1.2) mg/dL AST (5-40) units/L ALT (7-56) units/L Alkaline Phosphatase (35-129) units/L Total Protein (6.3-8.2) g/dL Albumin (3.9-5) g/dL Albumin/Globulin Ratio % Urine Color Yellow (Yellow) Urine Turbidity Clear (Clear) Urine pH 7.0 (5.0-7.0) Ur Specific [place] 1.016 (1.003-1.030) Urine Protein 100 mg/dl (Negative) mg/dL Urine Glucose (UA) Neg (Negative) mg/dL Urine Ketones Neg (Negative) mg/dL Urine Blood Neg (Negative) Urine Nitrite Neg (Negative) Urine Bilirubin Neg (Negative) Urine Urobilinogen < 2.0 (<2.0) mg/dL Ur Leukocyte Esterase Neg (Negative) Urine WBC (Auto) 1.0 (0.0-6.0) /HPF Urine RBC (Auto) 1.0 (0.0-6.0) /HPF U Epithel Cells (Auto) 1.0 (0-13.0) /HPF Urine Mucus Few /HPF Urine Opiates Screen Presumptive negative Urine Methadone Screen Presumptive negative Ur Barbiturates Screen Presumptive negative Ur Phencyclidine Scrn Presumptive negative Ur Amphetamines Screen Presumptive negative U Benzodiazepines Scrn Presumptive negative Urine Cocaine Screen Presumptive negative U Marijuana (THC) Screen Presumptive negative Drugs of Abuse Note Disclamer Plasma/Serum Alcohol (0-0.07) % - Radiology Data Radiology results: report reviewed, image reviewed Noncontrast CT scan of the brain is negative for acute disease Critical care attestation.: If time is entered above; I have spent that time in minutes in the direct care of this critically ill patient, excluding procedure time. ED Disposition Is pt being admited?: No Does the pt Need Aspirin: No
[2019-09-06 16:58] LABS: Basophils # (Auto) 0.1 K/mm3 (0.0-0.1); Basophils % (Auto) 1.4 % (0.0-1.8); Eosinophils % (Auto) 0.4 % (0.0-4.3); Hematocrit 41.6 % (35.5-45.6); Hemoglobin 14.1 gm/dl (11.8-15.2); Lymphocytes # (Auto) 1.6 K/mm3 (1.2-5.4); Lymphocytes % (Auto) 33.2 % (13.4-35.0); Mean Corpuscular HGB Conc 34 % (32-34); Mean Corpuscular Volume 97 fl (84-94); Monocytes # (Auto) 0.3 K/mm3 (0.0-0.8); Monocytes % (Auto) 6.9 % (0.0-7.3); Platelet Count 164 K/mm3 (140-440); Red Blood Count 4.29 M/mm3 (3.65-5.03); Red Cell Distribution Width 13.6 % (13.2-15.2)
[2019-09-06 17:23] LABS: Alanine Aminotransferase 34 units/L (7-56); Albumin 4.2 g/dL (3.9-5); BUN/Creatinine Ratio 14; Blood Urea Nitrogen 7 mg/dL (9-20); Calcium 8.5 mg/dL (8.4-10.2); Hemolysis Index 6
[2019-09-06 19:03] LABS: Bilirubin,Urine NEG (Negative); Blood,Urine NEG (Negative); Color,Urine Yellow (Yellow); Mucus,Urine FEW /HPF; Urobilinogen,Urine < 2.0 mg/dL (<2.0)
[2019-09-06 19:11] LABS: Amphetamine Screen,Urine PRESUMPTIVE NEGATIVE; Benzodiazepines Screen,Urine PRESUMPTIVE NEGATIVE; Cannabinoid Screen,Urine PRESUMPTIVE NEGATIVE; Cocaine Screen,Urine PRESUMPTIVE NEGATIVE; Methadone Screen,Urine PRESUMPTIVE NEGATIVE; Opiate Screen,Urine PRESUMPTIVE NEGATIVE
[2019-09-06] MEDS ORDERED: HALOPERIDOL LACTATE 5 MG/1 ML INJ IV PRN (20:05)
[2019-09-06] MEDS ORDERED: LORazepam 2 MG/ML VIAL IV PRN ×2 (20:05)
[2019-09-06] MEDS: LORazepam 2 MG/ML VIAL IV PRN ×2 (20:25→20:33)
[2019-09-06] MEDS ORDERED: ONDANSETRON 4 MG/2 ML INJ ONE (20:46)
[2019-09-06] MEDS ORDERED: ONDANSETRON 4 MG/2 ML INJ IV ONE (20:48)
[2019-09-07 04:30] VITALS: BP 152/79
[2019-09-07] MEDS: LORazepam 2 MG/ML VIAL IV PRN (07:06)
[2019-09-07] MEDS ORDERED: MAGNESIUM SULFATE 2 GM/50 ML BAG IV ONE (07:07)
--- NOTE | 2019-09-07 07:45 | Cat Scan Report ---
CT HEAD WITHOUT CONTRAST INDICATION / CLINICAL INFORMATION: head trauma etoh. TECHNIQUE: Axial imaging performed from the skull apex through the skull base without the use of cont rast. Sagittal and coronal reformatted images. All CT scans at this location are performed using CT dose reduction for ALARA by means of automated exposure control. COMPARISON: None available. FINDINGS: CEREBRAL PARENCHYMA: No significant abnormality. No acute territorial infarct. HEMORRHAGE: None. EXTRA-AXIAL SPACES: Incidental subarachnoid cyst is noted in the posterior fossa just to the right of midline measuring 2.4 x 3.1 x 3.4 cm. No significant mass effect on the fourth ventricle. VENTRICULAR SYSTEM: Normal in size and morphology for the patient's age. MIDLINE SHIFT OR HERNIATION: None. CEREBELLUM / BRAINSTEM: No significant abnormality. CALVARIUM: No significant abnormality. ORBITS: Normal as visualized. PARANASAL SINUSES / MASTOID AIR CELLS: Moderate mucosal thickening throughout the visualized paranasa l sinuses. The mastoid air cells are clear. SOFT TISSUES of HEAD: No significant abnormality. ADDITIONAL FINDINGS: A right nasal bone deformity is identified, age indeterminate. IMPRESSION: No acute intracranial abnormality. Incidental posterior fossa subarachnoid cyst. 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 Chronic sinus disease. Signer Name: Uriah Schwartz Jr, MD Signed: 09/07/2019 7:41 AM Workstation Name: [id number]
== END 2019-09-07 10:05 | disposition home or self-care (01) ==
LOC: ED 14:17
DX: F10.288 Alcohol dependence with other alcohol-induced disorder (principal); E83.42 Hypomagnesemia; I10 Essential (primary) hypertension; K21.9 Gastro-esophageal reflux disease without esophagitis; G43.909 Migraine, unspecified, not intractable, without status migrainosus; F17.200 Nicotine dependence, unspecified, uncomplicated; Z98.890 Other specified postprocedural states; Z79.899 Other long term (current) drug therapy
CPT/HCPCS: 36415; 70450; 80053; 80307; 81001; 83735; 85025; 96365; 96375; 96376; 99285; J2060; J2405; J3475; J7030; 80320; G0480